=== PATIENT | male | born 2000 | race African-American/Black ===

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

== ENCOUNTER 2019-09-09 20:11 | Emergency (ER) | payer OTHER ==
[~2019-09-09] VITALS: Ht 175.3 cm; Wt 55.3 kg
[~2019-09-09 20:11] MED LIST: MEDROLDOSEPACK PO; PROVENTIL HFA6.7 G1 INH; TESSALON PERLE100 MG PO
[2019-09-09 23:27] VITALS: BP 107/69
[2019-09-09] MEDS ORDERED: BUTALB-APAP-CA1 EACH PO (23:39)
== END 2019-09-10 00:01 | disposition home or self-care (01) ==
LOC: ER 20:11
DX: G43.909 Migraine, unspecified, not intractable, without status migrainosus (principal); J45.909 Unspecified asthma, uncomplicated

== ENCOUNTER 2019-12-06 09:30 | Emergency (ER) | payer OTHER ==
[~2019-12-06] VITALS: Ht 180.3 cm; Wt 74.8 kg
[~2019-12-06 09:30] MED LIST changes: +BUTALB-APAP-CA1 EACH PO
[2019-12-06 10:18] LABS: RBC 5.67 mil/uL (4.50-6.00); WBC 15.2 thou/uL (4.0-11.0)
[2019-12-06 10:19] LABS: HEMATOCRIT 50.1 % (42.0-52.0); HEMOGLOBIN 16.3 gm/dL (14.0-18.0); MCH 28.7 pg (26.0-34.0); MCHC 32.5 g/dL (28.0-37.0); MCV 88.4 fL (80.0-100.0); RDW 12.7 % (10.5-14.5)
[2019-12-06 10:33] LABS: CALCIUM 9.6 mg/dL (8.5-10.1); CREATININE 1.2 mg/dL (0.7-1.3); POTASSIUM 4.9 mmol/L (3.5-5.1)
[2019-12-06 11:01] LABS: URINE BILIRUBIN NEGATIVE (Negative); URINE BLOOD 3+ (Negative); URINE GLUCOSE-RANDOM* NEGATIVE (Negative); URINE KETONES NEGATIVE (Negative); URINE NITRITE-REFLEX NEGATIVE (Negative); URINE PROTEIN (DIPSTICK) 3+ (Negative); URINE SPECIFIC GRAVITY 1.025 (1.005-1.035); URINE UROBILINOGEN 0.2 E.U./dl (0.2-1.0)
[2019-12-06 11:08] LABS: URINE LEUKOCYTES-REFLEX 1+ (Negative)
[2019-12-06 11:09] LABS: URINE CLARITY CLOUDY; URINE COLOR RED
[2019-12-06 11:49] LABS: CASTS None Seen /LPF (None Seen); CRYSTALS None Seen /LPF (None Seen); SQUAMOUS 0-3 Few /LPF (0-3); URINE RBC >20 Many /HPF (0-2)
[2019-12-06 12:03] LABS: ABSOLUTE NEUTROPHILS 12.2 thou/uL (1.4-8.2); ANISOCYTOSIS SLIGHT
[2019-12-06 12:04] LABS: PLATELET COUNT 236 thou/uL (150-400)
[2019-12-06] MEDS ORDERED: KEFLEX500 M1 PO (12:18)
[2019-12-06 12:38] VITALS: BP 115/71
== END 2019-12-06 12:41 | disposition home or self-care (01) ==
LOC: ER 09:30
PROVIDERS: Emergency Medicine
DX: N12 Tubulo-interstitial nephritis, not specified as acute or chronic (principal); J45.909 Unspecified asthma, uncomplicated

== ENCOUNTER 2019-12-08 20:11 | Emergency (ER) | payer OTHER ==
[~2019-12-08] VITALS: Ht 175.3 cm; Wt 54.4 kg
[~2019-12-08 20:11] MED LIST changes: +KEFLEX500 M1 PO
[2019-12-08 21:15] LABS: URINE BILIRUBIN NEGATIVE (Negative); URINE BLOOD 3+ (Negative); URINE CLARITY SL CLOUDY; URINE COLOR YELLOW; URINE GLUCOSE-RANDOM* NEGATIVE (Negative); URINE KETONES NEGATIVE (Negative); URINE LEUKOCYTES-REFLEX NEGATIVE (Negative); URINE NITRITE-REFLEX NEGATIVE (Negative); URINE PROTEIN (DIPSTICK) NEGATIVE (Negative)
[2019-12-08 21:23] LABS: BACTERIA-REFLEX 1-9 Few /HPF (None Seen); CASTS None Seen /LPF (None Seen); CRYSTALS None Seen /LPF (None Seen); MUCUS 0-3 Light strn/LPF (None Seen); SQUAMOUS 0-3 Few /LPF (0-3); URINE WBC-REFLEX 0-5 Rare /HPF (0-5)
[2019-12-08 22:17] LABS: ABSOLUTE NEUTROPHILS 3.8 thou/uL (1.4-8.2); BASOPHILS 0.5 % (0.0-2.0); EOSINOPHILS 1.5 % (0.0-3.0); HEMATOCRIT 46.2 % (42.0-52.0); HEMOGLOBIN 14.8 gm/dL (14.0-18.0); MCH 28.5 pg (26.0-34.0); MCHC 32.2 g/dL (28.0-37.0); MCV 88.5 fL (80.0-100.0); MONOCYTES 8.9 % (1.0-8.0); PLATELET COUNT 220 thou/uL (150-400); POLYS 56.1 % (36.0-66.0); RBC 5.22 mil/uL (4.50-6.00); RDW 12.8 % (10.5-14.5); WBC 6.9 thou/uL (4.0-11.0)
[2019-12-08 22:32] LABS: CALCIUM 8.9 mg/dL (8.5-10.1); CREATININE 1.1 mg/dL (0.7-1.3); POTASSIUM 3.8 mmol/L (3.5-5.1)
[2019-12-08 22:37] LABS: ALBUMIN 3.9 g/dL (3.4-5.0); TOTAL BILIRUBIN 0.5 mg/dL (<0.1-1.0)
[2019-12-09 00:46] VITALS: BP 128/70
== END 2019-12-09 00:46 | disposition home or self-care (01) ==
LOC: ER 20:11
PROVIDERS: Nurse Practitioner
DX: R10.84 Generalized abdominal pain (principal); R10.30 Lower abdominal pain, unspecified; J45.909 Unspecified asthma, uncomplicated

== ENCOUNTER → 2019-12-10 | Outpatient (CLI) | payer OTHER | LOC: CAT 09:45 | DX: R31.9 Hematuria, unspecified (principal) ==

== ENCOUNTER 2019-12-15 20:50 | Emergency (ER) | payer OTHER ==
[~2019-12-15] VITALS: Ht 175.3 cm; Wt 54.4 kg
[2019-12-15 23:20] LABS: ABSOLUTE NEUTROPHILS 2.1 thou/uL (1.4-8.2); BASOPHILS 0.4 % (0.0-2.0); EOSINOPHILS 2.6 % (0.0-3.0); HEMATOCRIT 44.1 % (42.0-52.0); HEMOGLOBIN 14.4 gm/dL (14.0-18.0); LYMPHOCYTES 44.3 % (24.0-44.0); MCH 28.4 pg (26.0-34.0); MCHC 32.7 g/dL (28.0-37.0); MCV 86.6 fL (80.0-100.0); MONOCYTES 10.4 % (1.0-8.0); PLATELET COUNT 252 thou/uL (150-400); POLYS 42.3 % (36.0-66.0); RBC 5.09 mil/uL (4.50-6.00); RDW 12.7 % (10.5-14.5)
[2019-12-15 23:24] LABS: CALCIUM 8.9 mg/dL (8.5-10.1)
[2019-12-15 23:30] LABS: TOTAL BILIRUBIN 0.5 mg/dL (<0.1-1.0); TOTAL PROTEIN 7.7 g/dL (6.4-8.2)
[2019-12-15 23:30] LABS: URINE BILIRUBIN NEGATIVE (Negative); URINE BLOOD 1+ (Negative); URINE CLARITY CLEAR; URINE COLOR YELLOW; URINE GLUCOSE-RANDOM* NEGATIVE (Negative); URINE KETONES NEGATIVE (Negative); URINE LEUKOCYTES-REFLEX NEGATIVE (Negative); URINE NITRITE-REFLEX NEGATIVE (Negative); URINE PROTEIN (DIPSTICK) NEGATIVE (Negative); URINE UROBILINOGEN 0.2 E.U./dl (0.2-1.0)
[2019-12-15 23:53] LABS: BACTERIA-REFLEX 1-9 Few /HPF (None Seen); CASTS None Seen /LPF (None Seen); CRYSTALS None Seen /LPF (None Seen); MUCUS 0-3 Light strn/LPF (None Seen); SQUAMOUS 0-3 Few /LPF (0-3); URINE RBC 3-10 Few /HPF (0-2); URINE WBC-REFLEX 0-5 Rare /HPF (0-5)
[2019-12-16] MEDS ORDERED: CIPROFLOXACIN500 M1 PO (03:13)
[2019-12-16] MEDS ORDERED: SENNA-DOCUSATE1 EAC1 PO (03:13)
[2019-12-16] MEDS ORDERED: ZOFRAN ODT4 MG PO (03:13)
[2019-12-16] MEDS ORDERED: ULTRAM 50MG TAB50 MG PO (03:13)
[2019-12-16] MEDS ORDERED: NAPROSYN500 MG PO (03:13)
[2019-12-16 03:23] VITALS: BP 111/72
== END 2019-12-16 03:24 | disposition home or self-care (01) ==
LOC: ER 20:50
PROVIDERS: Emergency Medicine; Physician Assistant
DX: R10.31 Right lower quadrant pain (principal); R82.90 Unspecified abnormal findings in urine; J45.909 Unspecified asthma, uncomplicated